=== PATIENT | male | born 2000 | race Native Hawaiian/Other Pacific Islander ===

== ENCOUNTER 2021-11-16 14:39 | Emergency (ER) | payer OTHER ==
[~2021-11-16] VITALS: Ht 180.3 cm; Wt 86.2 kg
[2021-11-16 14:44] VITALS: TEMP 99.3
[2021-11-16 16:04] VITALS: BP 133/88
== END 2021-11-16 16:06 | disposition home or self-care (01) ==
LOC: ED 14:39
DX: L03.116 Cellulitis of left lower limb (principal)
CPT/HCPCS: 96372; 99283; J1885; J3490